=== PATIENT | female | born 1990 | race Caucasian/White ===

== ENCOUNTER 2019-04-02 13:58 | Emergency (ER) | payer SELFPAY ==
[2019-04-02 15:05] LABS: Bilirubin Negative (Negative); Blood, Urine Negative (Negative); Clarity Clear (Clear); Glucose, Urine (Dipstick) Normal (Negative); Leukocyte Negative Leu/uL (Negative); Nitrite Negative (Negative); Protein, Urine (Dipstick) Negative (Neg-Trace); Urobilinogen Normal mg/dL (Less than 2)
== END 2019-04-02 17:17 | disposition home or self-care (01) ==
LOC: ERS 13:58
DX: N76.0 Acute vaginitis (principal); B96.89 Other specified bacterial agents as the cause of diseases classified elsewhere; A60.00 Herpesviral infection of urogenital system, unspecified
CPT/HCPCS: 81003; 87480; 87491; 87510; 87591; 87660; 99283